=== PATIENT | female | born 1980 | race Two or more races ===

== ENCOUNTER 2019-09-26 05:08 | Emergency (ER) | payer OTHER ==
[~2019-09-26] VITALS: Ht 162.6 cm; Wt 64.0 kg
--- NOTE | 2019-09-26 05:25 | PHYS DOC ---
Past Medical History Past Medical History: No Pertinent History Past Medical History Limited due to intoxication Past Surgical History: No Surgical History Past Surgical History Limited due to intoxication Smoking Status: Never Smoker Alcohol Use: None Drug Use: None Social History Limited due to intoxication General Adult EDM: Chief Complaint: MULTIPLE COMPLAINTS HPI: HPI: Patient is a 39 year old female presents with multiple complaints with changing timeline. Reports has had a headache and sore throat that started today or maybe yesterday afternoon. Reports some nausea and vomiting and some low back pain. Denies trauma. Denies use of ETOH or illicit drugs. Denies known sick contacts. Denies known exposure to COVID-19. Reports she might be . Patient reports she works at [employer] and needs a work excuse. Patient laughing and with hiccups. Slurring speech. Denies ETOH use. History of present illness limited due to intoxication. Review of Systems: Review of Systems: Constitutional: Denies fever or chills Eyes: Denies redness or eye pain HENT: Denies nasal congestion; reports sore throat GI: Denies abdominal pain; reports nausea and vomiting Musculoskeletal: Reports back pain Integument: Denies rash or skin lesions Neurologic: Reports headache Review of symptoms limited due to intoxication. Physical Exam: PE: Constitutional: Well developed, well nourished, no acute distress, non-toxic appearance HENT: Normocephalic, atraumatic, pharyngeal erythema without exudate noted Eyes: PERRL, EOMI, conjunctiva normal, no discharge, horizontal nystagmus Neck: Normal range of motion, no midline tenderness, supple Lungs & Thorax: No respiratory distress, equal chest rise and fall Back pain: No midline tenderness, paraspinal tenderness noted Skin: Warm, dry, no erythema, no rash Extremities: No tenderness, ROM intact, no edema Neurologic: Alert and oriented X 3, no motor or sensory deficit noted, no focal deficits noted Psychologic: Affect intoxicated, judgment abnormal EKG: EKG: [] Radiology/Procedures: Radiology/Procedures: [] Course & Med Decision Making: Course & Med Decision Making Pertinent Lab studies reviewed. (See chart for details) Patient presents with multiple complaints including headache and sore throat. Symptomatic treatment provided with one-time dose of oral steroid. Rapid strep negative. Monospot within normal limits. COVID 19 cannot be excluded. COVID precautions in place. COVID testing pending. Pain addressed. Patient appears intoxicated. Denies ETOH use. UDS positive for ETOH. Upreg negative. UA without signs of infection. Patient stable for discharge with outpatient follow-up with PCP. Discussed findings and plan with patient, who acknowledges understanding and agreement. COVID-19 CRITERIA: The patient was evaluated during the global COVID-19 pandemic, and that diagnosis was suspected/considered upon their initial presentation. Their evaluation, treatment and testing was consistent with current guidelines for patients who present with complaints or symptoms that may be related to COVID-19. Dragon Disclaimer: Dragon Disclaimer: This electronic medical record was generated, in whole or in part, using a voice recognition dictation system. Departure Departure Impression: Primary Impression: Alcohol intoxication Qualified Codes: F10.920 - Alcohol use, unspecified with intoxication, uncomplicated Additional Impressions: Back pain Qualified Codes: M54.5 - Low back pain Pharyngitis Qualified Codes: J02.9 - Acute pharyngitis, unspecified Headache Qualified Codes: R51 - Headache Suspected 2019 novel coronavirus infection Disposition: HOME, SELF-CARE Condition: STABLE Referrals: NON,STAFF (PCP) Patient Instructions: Alcohol Intoxication, Boec-vp-Rbgd, Back Pain, Adult, [id number], Headache, FAQs, Viral and Bacterial Pharyngitis, Sgzd-hk-Niss Additional Instructions: Use over the counter Tylenol and/o Ibuprofen for pain or discomfort. ICE area of discomfort for 20 min then leave off for next 20 min. Repeat several times daily for next few days. You have been tested for or diagnosed with COVID-19. It is an infection caused by a new type of coronavirus. COVID-19 will cause cold-like or mild flu symptoms in most. It can cause more severe symptoms like problems breathing in some. There is no treatment for COVID-19. The body will clear the infection over time. Self-care will help to ease discomfort. Steps to Take: Self-Care Rest as needed. Healthy habits may help you feel better. Steps include: Choose healthy foods including fruits and vegetables. Drink water throughout the day. Get plenty of sleep each night. If you smoke, try to quit. It may ease breathing. Avoid alcohol. Keep Others Healthy The virus can spread to others. Droplets are released every time you sneeze or cough. The droplets can get into the mouth, nose, or eyes of people near you and lead to infection. To lower the chances of spreading COVID-19 to others: Stay at home until your doctor has said it is safe to leave. If you tested positive this will mean staying isolated until both of the following are true: At least 7 days have passed since the start of illness. You are free of fever for at least 72 hours without the use of medicine. During this time: - Avoid public areas, events, or transportation. Do not return to work or school until your doctor has said it is safe to do so. - Call ahead if you need to go to a medical center. Let them know you may have COVID-19. It will help them guide you where to go. They may also ask you to wear a facemask when you come to the office. - If you call for emergency medical services, let them know you may have COVID- 19. While at home: - Try to avoid close contact with others. Stay about 6 feet away. - If possible, spend most of your time in a separate room from others. - Use a face mask if you will be in close contact with others such as sharing a room or vehicle. - Have someone wipe down common surfaces in the home. Use household appetizer packer every day on areas like doorknobs, counters, or sinks. - Cough or sneeze into a tissue. Throw the tissue away right after use. If a tissue is not available, cough or sneeze into your elbow. - Wash your hands often. Wash them after sneezing or coughing. Use soap and water and wash for at least 20 seconds. Alcohol based hand apparatus cleaner can be used if soap and water is not available. - Do not prepare food for others. Avoid sharing personal items like forks, spoo ns, or toothbrushes. - Avoid close contact with pets while you are sick. There is no evidence of the virus passing to pets. This is a safety step until more is known about this virus. Isolation can be frustrating. Social interaction can help. Keep in touch with friends and family through phone and tech options. You can still interact with others in your home, just keep a safe distance of about 6 feet. Follow-up: Your doctors office will check in with you to see if there are any changes in your health. You may be asked to keep track of symptoms to share with them. They will also let you know when you are clear to be in public again. Problems to Look Out For: Contact your doctor if your recovery is not going as you expect. Get emergency care if you have problems such as: - Trouble breathing - Nonstop chest pain or pressure - Changes in awareness, confusion, or problems waking - Lips or face have bluish color - Worsening of symptoms If you think you have an emergency, call for emergency medical services right away. As taken from [facility] Ondansetron (ONDANSETRON ODT) 4 Mg Tab.rapdis 1 TAB PO PRN Q6-8HRS PRN for NAUSEA, #16 TAB Prov: KEVIN SHAH DO 09/26/19 Butalb/Acetaminophen/Caffeine ([id number] [id number]) 1 Each Tablet 1 EACH PO Q6HRS PRN for HEADACHE, #10 TAB Prov: KEVIN SHAH DO 09/26/19 Justicifation of Admission Dx: Justifications for Admission: Justification of Admission Dx: N/A COVID-19 Assessment: COVID-19 Patient Risks: Age 65 or older: No Sign of co-morbidity: No Exp to person + for COVID: No Exp to PUI: No Travel from affected area: No Lower respiratory symptoms: Yes Fever: No PPE Use: Full PPE with N95 mask or PAPR: Yes KEVIN SHAH DO Sep 26, 2019 05:24
[2019-09-26] MEDS ORDERED: ACETAMINOPHEN 500 MG TABLET PO ONE (05:45)
[2019-09-26] MEDS ORDERED: DEXAMETHASONE 4 MG TABLET PO ONE (05:45)
[2019-09-26 05:54] LABS: BILIRUBIN,URINE NEGATIVE (NEG); CLARITY,URINE CLEAR; COLOR,URINE YELLOW; NITRITE,URINE NEGATIVE (NEG); PH,URINE 5.5 (<5.0-8.0); PROTEIN,URINE NEGATIVE (NEG-TRACE); UROBILINOGEN,URINE 0.2 mg/dL (0.2 mg/dL)
[2019-09-26 06:12] LABS: BARBITURATES NEG (NEG); BENZODIAZEPINES NEG (NEG); CANNABINOIDS NEG (NEG); COCAINE NEG (NEG); METHADONE NEG (NEG); OPIATES NEG (NEG); PHENCYCLIDINE NEG (NEG)
[2019-09-26 06:14] LABS: AMPHETAMINE/METHAMPHETAMINE NEG (NEG)
[2019-09-26 06:15] LABS: BACTERIA,URINE FEW /HPF (0-FEW); RBC,URINE 0 /HPF (0-2); SQUAMOUS EPITHELIAL CELL,UR MOD /LPF; WBC,URINE 0 /HPF (0-4)
[2019-09-26] MEDS ORDERED: ONDA4TAB12 PO (06:27)
[2019-09-26] MEDS ORDERED: BUTA1TAB23 PO (06:27)
[2019-09-26 06:38] VITALS: BP 113/77
[2019-09-26 06:47] LABS: MONONUCLEOSIS PATIENT NEGATIVE (NEGATIVE)
== END 2019-09-26 06:40 | disposition home or self-care (01) ==
LOC: ER 05:08
DX: F10.229 Alcohol dependence with intoxication, unspecified (principal); M54.5 Low back pain; Z20.818 Contact with and (suspected) exposure to other bacterial communicable diseases; R51 Headache; J02.9 Acute pharyngitis, unspecified; R11.2 Nausea with vomiting, unspecified
CPT/HCPCS: 80307; 81001; 81025; 86308; 87070; 87880; 99283; U0003

== ENCOUNTER 2019-10-17 20:42 | Emergency (ER) | payer OTHER ==
[~2019-10-17] VITALS: Ht 162.6 cm; Wt 72.7 kg
[~2019-10-17 20:42] MED LIST: BUTA1TAB23 PO; ONDA4TAB12 PO
--- NOTE | 2019-10-17 23:18 | PHYS DOC ---
Past Medical History Past Medical History: No Pertinent History Past Surgical History: No Surgical History Smoking Status: Never Smoker Alcohol Use: None Drug Use: None General Adult EDM: Chief Complaint: DIZZY/LIGHT HEADED HPI: HPI: Patient is a 39 year old female who presents with vague complaints of not f eeling well for 1 week. Patient reports about a week ago she began to have a little bit of a cough, sore throat, chills and body aches. She reports that the cough is nonproductive, denies any change in smell or taste, nausea or vomiting, diarrhea, abdominal pain or chest pain. Patient also denies any shortness of breath. She reports her cough is generally nonproductive. Patient does complain of a bifrontal headache that is constant, "very mild". Not associated with photophobia or any focal neurological changes. Patient did strike her face and the right eye about 3 days ago and has a small red area on the sclera. Patient denies chest pain, back pain, change in urination. Review of Systems: Review of Systems: Constitutional: See HPI [] Eyes: Denies change in visual acuity. [] HENT: See HPI [] Respiratory: See HPI. [] Cardiovascular: Denies chest pain or edema. [] GI: Denies abdominal pain, nausea, vomiting, bloody stools or diarrhea. [] : Denies dysuria. [] Musculoskeletal: Denies back pain or joint pain. [] Integument: Denies rash. [] Neurologic: Denies headache, focal weakness or sensory changes. [] Endocrine: Denies polyuria or polydipsia. [] Lymphatic: Denies swollen glands. [] Psychiatric: Denies depression or anxiety. [] Heart Score: Risk Factors: Risk Factors: DM, Current or recent (<one month) smoker, HTN, HLP, family history of CAD, obesity. Risk Scores: Score 0 - 3: 2.5% MACE over next 6 weeks - Discharge Home Score 4 - 6: 20.3% MACE over next 6 weeks - Admit for Clinical Observation Score 7 - 10: 72.7% MACE over next 6 weeks - Early Invasive Strategies Allergies: Allergies: Allergies Coded Allergies Type Severity Reaction Last Updated Verified No Known Drug Allergies 09/26/19 No Physical Exam: PE: Constitutional: Well developed, well nourished, no acute distress, non-toxic appearance. [] HENT: Normocephalic, atraumatic, bilateral external ears normal, oropharynx moist, no oral exudates, nose normal. [] Eyes: PERRLA, EOMI, conjunctiva normal, no discharge. Small subconjunctival hematoma on the right eye, visual shafer full to confrontation, positive red reflex [] Neck: Normal range of motion, no tenderness, supple, no stridor. [] Cardiovascular:Heart rate regular rhythm, no murmur [] Lungs & Thorax: Bilateral breath sounds clear to auscultation [] Abdomen: Bowel sounds normal, soft, no tenderness, no masses, no pulsatile masses. [] Skin: Warm, dry, no erythema, no rash. [] Back: No tenderness, no CVA tenderness. [] Extremities: No tenderness, no cyanosis, no clubbing, ROM intact, no edema. [] Neurologic: Alert and oriented X 3, normal motor function, normal sensory function, no focal deficits noted. [] Psychologic: Affect normal, judgement normal, mood normal. [] Current Patient Data: Vital Signs: Vital Signs Date Time Temp Pulse Resp B/P (MAP) Pulse Ox O2 Delivery O2 Flow Rate FiO2 10/17/19 20:46 98.8 79 18 99 98.8 EKG: EKG: [] Radiology/Procedures: Radiology/Procedures: [] Course & Med Decision Making: Course & Med Decision Making Pertinent Labs and Imaging studies reviewed. (See chart for details) 0036-patient was seen and reevaluated. No evidence for an exigent medical surgical problems identified at this time. I discussed with patient reasons to return, treatment plan and need for follow-up. [] Dragon Disclaimer: Dragon Disclaimer: This electronic medical record was generated, in whole or in part, using a voice recognition dictation system. Departure Departure Impression: Primary Impression: Viral syndrome Additional Impressions: Acute bronchitis Qualified Codes: J20.9 - Acute bronchitis, unspecified Generalized headache Fatigue Qualified Codes: R53.83 - Other fatigue Subconjunctival hematoma Qualified Codes: H11.31 - Conjunctival hemorrhage, right eye Disposition: HOME, SELF-CARE Condition: STABLE Referrals: NO PCP (PCP) Patient Instructions: Subconjunctival Hemorrhage, Viral Syndrome Additional Instructions: Please see the list of primary care providers to follow-up with Scripts Albuterol Sulfate (VENTOLIN HFA INHALER) 18 Gm Hfa.aer.ad 2 PUFF INH Q4HRS for FOR ASTHMA, #1 INHALER 0 Refills 2 puffs with spacer, every 4 hours as needed waiting 15 minutes between each puff and using a spacer. Prov: WILBUR LOUISE MD 10/18/19 Justicifation of Admission Dx: Justifications for Admission: Justification of Admission Dx: N/A WILBUR LOUISE MD Oct 17, 2019 23:18
[2019-10-17 23:25] LABS: BASO # 0.1 x10^3/uL (0.0-0.2); BASO % 1 % (0-3); EOS # 0.1 x10^3/uL (0.0-0.7); EOS % 2 % (0-3); HEMATOCRIT 43.3 % (36.0-47.0); HEMOGLOBIN 14.4 g/dL (12.0-15.5); LYMPH # 2.2 x10^3/uL (1.0-4.8); LYMPH % 30 % (24-48); MEAN CORPUSCULAR HEMOGLOBIN 28 pg (25-35); MEAN CORPUSCULAR HGB CONC 33 g/dL (31-37); MEAN CORPUSCULAR VOLUME 84 fL (79-100); MONO # 0.5 x10^3/uL (0.0-1.1); MONO % 6 % (0-9); NEUT # 4.3 x10^3/uL (1.8-7.7); NEUT % 60 % (31-73); PLATELET COUNT 251 x10^3/uL (140-400); RED BLOOD COUNT 5.14 x10^6/uL (3.50-5.40); WHITE BLOOD COUNT 7.1 x10^3/uL (4.0-11.0)
[2019-10-17 23:26] LABS: BILIRUBIN,URINE NEGATIVE (NEG); CLARITY,URINE CLEAR; COLOR,URINE YELLOW; NITRITE,URINE NEGATIVE (NEG); PROTEIN,URINE NEGATIVE (NEG-TRACE); UROBILINOGEN,URINE 0.2 mg/dL (0.2 mg/dL)
[2019-10-17] MEDS ORDERED: IV NORMAL SALINE 500ML BAG 500 ML IV ONE (23:30)
[2019-10-17] MEDS ORDERED: KETOROLAC 30 MG/ML VIAL. IVP ONE (23:30)
[2019-10-17 23:31] LABS: BACTERIA,URINE 0 /HPF (0-FEW); RBC,URINE 0 /HPF (0-2); SQUAMOUS EPITHELIAL CELL,UR FEW /LPF; WBC,URINE 0 /HPF (0-4)
[2019-10-17 23:43] LABS: CALCIUM 8.8 mg/dL (8.5-10.1); CREATININE 0.9 mg/dL (0.6-1.0); GFR 70.1; POTASSIUM 3.5 mmol/L (3.5-5.1)
--- NOTE | 2019-10-18 00:22 | RAD ---
AP chest x-ray HISTORY: Cough, person under investigation for Covid pneumonia. FINDINGS: Heart size normal. Mediastinal silhouette is normal. No pneumothorax, pulmonary opacities or pleural effusions. The bones are unremarkable. IMPRESSION: No acute process. Electronically signed by: Kee Easley MD (10/18/2019 12:19 AM) [facility]
[2019-10-18] MEDS ORDERED: VENTOLIN HFA18 GM INH (00:36)
[2019-10-18 01:14] VITALS: BP 131/64
--- NOTE | 2019-10-20 10:32 | NUR ---
IP: Informed pt of negative COVID results. Pt verbalized understanding.
== END 2019-10-18 01:55 | disposition home or self-care (01) ==
LOC: ER 20:42
DX: S05.11XA Contusion of eyeball and orbital tissues, right eye, initial encounter (principal); B34.9 Viral infection, unspecified; Z20.828 Contact with and (suspected) exposure to other viral communicable diseases; J20.9 Acute bronchitis, unspecified; H11.31 Conjunctival hemorrhage, right eye; R53.83 Other fatigue; R51 Headache; X58.XXXA Exposure to other specified factors, initial encounter; Y93.89 Activity, other specified; Y92.89 Other specified places as the place of occurrence of the external cause; Y99.8 Other external cause status
CPT/HCPCS: 36415; 71045; 80048; 81001; 81025; 85025; 96374; 99285; J1885; J7040; U0003

== ENCOUNTER 2020-06-28 18:01 | Emergency (ER) | payer BC, OTHER ==
[~2020-06-28] VITALS: Ht 162.6 cm; Wt 73.6 kg
[~2020-06-28 18:01] MED LIST changes: +VENTOLIN HFA18 GM INH
--- NOTE | 2020-06-28 21:10 | PHYS DOC ---
Past Medical History Past Medical History: No Pertinent History Past Surgical History: No Surgical History Smoking Status: Never Smoker Alcohol Use: None Drug Use: None General Adult EDM: Chief Complaint: OTHER COMPLAINTS HPI: HPI: Patient is a 39-year-old female who presented to ER wanting to have a pelvic u ltrasound to confirm her status. Patient says she is 17 weeks , she went to her SOUNDING DEVICE OPERATOR doctor at [facility] today for regular checkup. They could not detect her heart tone. They did an ultrasound later and confirmed that she had demise. They scheduled her for a D&C tomorrow. However patient wanted to come here to have a second opinion. Pat ient denies any pelvic pain, no vaginal bleeding or discharge. Patient denies any abdominal pain. Patient denies any fever, no cough, no chest pain, no trouble breathing Review of Systems: Review of Systems: Constitutional: Denies fever or chills. [] Eyes: Denies change in visual acuity. [] HENT: Denies nasal congestion or sore throat. [] Respiratory: Denies cough or shortness of breath. [] Cardiovascular: Denies chest pain or edema. [] GI: Denies abdominal pain, nausea, vomiting, bloody stools or diarrhea. [] : Denies dysuria. [] Musculoskeletal: Denies back pain or joint pain. [] Integument: Denies rash. [] Neurologic: Denies headache, focal weakness or sensory changes. [] Endocrine: Denies polyuria or polydipsia. [] Lymphatic: Denies swollen glands. [] Psychiatric: Denies depression or anxiety. [] Heart Score: C/O Chest Pain: N/A Risk Factors: Risk Factors: DM, Current or recent (<one month) smoker, HTN, HLP, family history of CAD, obesity. Risk Scores: Score 0 - 3: 2.5% MACE over next 6 weeks - Discharge Home Score 4 - 6: 20.3% MACE over next 6 weeks - Admit for Clinical Observation Score 7 - 10: 72.7% MACE over next 6 weeks - Early Invasive Strategies Allergies: Allergies: Allergies Coded Allergies Type Severity Reaction Last Updated Verified No Known Drug Allergies 09/26/19 No Physical Exam: PE: Constitutional: Well developed, well nourished, no acute distress, non-toxic appearance. [] HENT: Normocephalic, atraumatic, bilateral external ears normal, oropharynx moist, no oral exudates, nose normal. [] Eyes: PERRLA, EOMI, conjunctiva normal, no discharge. [] Neck: Normal range of motion, no tenderness, supple, no stridor. [] Cardiovascular:Heart rate regular rhythm, no murmur [] Lungs & Thorax: Bilateral breath sounds clear to auscultation [] Abdomen: Bowel sounds normal, soft, no tenderness, no masses, no pulsatile masses. [] Skin: Warm, dry, no erythema, no rash. [] Back: No tenderness, no CVA tenderness. [] Extremities: No tenderness, no cyanosis, no clubbing, ROM intact, no edema. [] Neurologic: Alert and oriented X 3, normal motor function, normal sensory function, no focal deficits noted. [] Psychologic: Affect normal, judgement normal, mood normal. [] Current Patient Data: Labs: Laboratory Tests Test 06/28/20 20:03 POC Urine HCG, Qualitative Hcg negative (Negative) EKG: EKG: [] Radiology/Procedures: Radiology/Procedures: [][facility] [address] [place] [address] IMAGING REPORT Signed PATIENT: LITA RUDD ACCOUNT: [id number] : 1980 LOCATION: ER AGE: 39 SEX: F EXAM STATUS: REG ER ORD. PHYSICIAN: JAIDA KELLY DO REASON: 17 weeks , no movement, no heart tone PROCEDURE: OB LIMITED EXAM: OBSTETRIC ULTRASOUND. HISTORY: No movement. COMPARISON: None. FINDINGS: Sonographic evaluation of the uterus, fetus and maternal pelvis was performed. A single demonstrates no movement or heart motion consistent demise. Estimated gestational age based on measurements is 17 weeks 4 days. Head circumference, biparietal diameter, abdominal circumference and femur length are commensurate. The placenta is anterior. There is no evidence of placenta previa or subchorionic collection. Amniotic fluid volume appears normal with amniotic fluid index 11.4 cm. The maternal adnexa are obscured by positioning currently. IMPRESSION: 1. No heart motion consistent with demise. Electronically signed by: Juwan Carrillo MD (06/28/2020 10:01 PM) [facility] DICTATED and SIGNED BY: MORA CARRILLO MD DATE: 06/28/20 [id number] Course & Med Decision Making: Course & Med Decision Making Pertinent Labs and Imaging studies reviewed. (See chart for details) Patient is a 39-year-old female who presented to ER wanting to have a pelvic ultrasound to confirm her status. Patient says she is 17 weeks , she went to her SOUNDING DEVICE OPERATOR doctor at [facility] today for regular checkup. They could not detect her heart tone. They did an ultrasound later and confirmed that she had demise. They scheduled her for a D&C tomorrow. However patient wanted to come here to have a second opinion. Patient denies any pelvic pain, no vaginal bleeding or discharge. Patient denies any abdominal pain. Patient denies any fever, no cough, no chest pain, no trouble breathing. Pelvic ultrasound today did not detect any heart tone, consistent with demise. Patient was discharged home, she will follow up with [facility] for D&C as scheduled. Dragon Disclaimer: DragLocaller Disclaimer: This electronic medical record was generated, in whole or in part, using a voice recognition dictation system. Departure Departure Impression: Primary Impression: demise before 20 weeks with retention of fetus Disposition: 01 HOME / SELF CARE / HOMELESS Referrals: NO PCP (PCP) LENARD JARA Jr, MD Please call this SOUNDING DEVICE OPERATOR doctor for follow up this week or follow up with your SOUNDING DEVICE OPERATOR doctor at [facility] THIS WEEK. Patient Instructions: Intrauterine Demise Additional Instructions: Thank you for visiting our Emergency Department. We appreciate you trusting us with your care. If any additional problems come up don't hesitate to return to visit us. Please follow up with your primary care provider so they can plan additional care if needed and know about the problem that you had. If symptoms worsen come back to the Emergency Department. Any concerning symptoms that start such as chest pain, shortness of air, weakness or numbness on one side of the body, running high fevers or any other concerning symptoms return to the ER. JAIDA KELLY DO Jun 28, 2020 21:10
--- NOTE | 2020-06-28 22:03 | RAD ---
EXAM: OBSTETRIC ULTRASOUND. HISTORY: No movement. COMPARISON: None. FINDINGS: Sonographic evaluation of the uterus, fetus and maternal pelvis was performed. A single demonstrates no movement or heart motion consistent demise. Estimated gestationa l age based on measurements is 17 weeks 4 days. Head circumference, biparietal diameter, abdominal ci rcumference and femur length are commensurate. The placenta is anterior. There is no evidence of placenta previa or subchorionic collection. Amnioti c fluid volume appears normal with amniotic fluid index 11.4 cm. The maternal adnexa are obscured by positioning currently. IMPRESSION: 1. No heart motion consistent with demise. Electronically signed by: Juwan Carrillo MD (06/28/2020 10:01 PM) [facility]
[2020-06-28 22:15] VITALS: BP 116/62
== END 2020-06-28 22:15 | disposition home or self-care (01) ==
LOC: ER 18:01
DX: O36.4XX0 Maternal care for intrauterine death, not applicable or unspecified (principal); Z3A.17 17 weeks gestation of pregnancy
CPT/HCPCS: 76815; 81025; 99284